=== PATIENT | male | born 2000 | race Caucasian/White ===

== ENCOUNTER 2023-08-22 11:23 | Emergency (ER) | payer OTHER, SELFPAY ==
[2023-08-22 11:30] VITALS: BP 153/91; PULSE 66; RESP 16; TEMP 36.9; O2SAT 97; BMI 21.1
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
[2023-08-22 12:30] VITALS: BP 111/87; PULSE 56; RESP 16; O2SAT 98
== END 2023-08-22 13:03 | disposition home or self-care (01) ==
PROVIDERS: Emergency Provider Physician Assistant
DX: S00.81XA Abrasion of other part of head, initial encounter (principal); W20.8XXA Other cause of strike by thrown, projected or falling object, initial encounter; Y99.0 Civilian activity done for income or pay
CPT/HCPCS: 70450; 99284